=== PATIENT | female | born 1955 ===

== ENCOUNTER 2021-08-05 15:09 | Inpatient (IN) ==
[2021-08-05] MEDS ORDERED: 0.9 % SODIUM CHLORIDE 1,000 ML IV SCH (15:15)
[2021-08-05] MEDS ORDERED: 0.9 % SODIUM CHLORIDE 1,000 ML IV ONE (15:40)
--- NOTE | 2021-08-05 16:01 | Emergency Department Note ---
Altered Mental Status HPI General Chief Complaint: Altered Mental Status Stated Complaint: acute delerium, confusion Time Seen by Provider: 08/05/21 15:14 Source: patient and EMS Mode of arrival: EMS Limitations: altered mental status and physical limitation History of Present Illness HPI Narrative: Narrative: Patient presented to the emergency department via EMS for altered mental status. I actually saw her about 3 hours ago after a fall she had never been to this facility side is unsure what her baseline was she was little confused but because she was in the intermediate I figured that was baseline. She ended up being diagnosed with a bimalleolar fracture of the right ankle as well as pneumonia was given azithromycin here and then discharged back to the facility. Upon going back to the facility nursing staff was very concerned as they said that this is not the patient's baseline she is much more altered and want us to do a further work-up at this time. Patient does know her name where she is but is saying some very abnormal things and seems to be confused. They said that she kept on grabbing at her splint of the right lower extremity and wanted to take it off which is abnormal for her. Denying any other symptoms otherwise. Related Data Home Medications Medication Instructions Recorded Confirmed cetirizine 10 mg capsule (All Day 10 mg PO QHS 08/05/21 08/05/21 Allergy (cetirizine)) fluticasone propionate 100 1 inh INHALATION BID 08/05/21 08/05/21 mcg/actuation blister powder for inhalation (Flovent Diskus) fluticasone propionate 50 1 spray INTRANASAL BID 08/05/21 08/05/21 mcg/actuation nasal spray,suspension (Allergy Relief (fluticasone)) ipratropium bromide 17 2 puff INHALATION QID 08/05/21 08/05/21 mcg/actuation HFA aerosol inhaler (Atrovent HFA) simethicone 125 mg capsule (Gas-X 125 mg PO Q6H PRN 08/05/21 08/05/21 Extra Strength) Previous Rx's Medication Instructions Recorded azithromycin 250 mg tablet See Rx Instructions .ROUTE 08/05/21 .COMPLEX #6 tab Allergies Allergy/AdvReac Type Severity Reaction Status Date / Time morphine Allergy Verified 08/05/21 15:13 nalbuphine Allergy Verified 08/05/21 15:13 Review of Systems ROS ROS Narrative: Narrative: All systems ED: reviewed and negative except as stated. PFSH Narrative Patient History Narrative: Narrative: Medical/Surgical/Family History All Active Problems (Updated 08/05/21 @ 16:54 by Nile Aviles DO) Bimalleolar ankle fracture (Acute) Community acquired pneumonia (Acute) Altered mental status (Acute) Acute hyponatremia (Acute) Social History Smoking Status: Former smoker Exam Narrative Narrative: Narrative: Vital signs noted General: Awake. Alert. No distress. Skin: Warm. Dry. No rash. HEENT: NCAT. PERRL. EOMI. No conjunctivitis. No nystagmus. No pharyngitis. Membranes moist. Neck: No PTP. Good ROM. No meningeal signs. No stridor. No thyromegaly. No JVD. Cardiovascular: RRR. No murmur. No rubs. No gallops. Respiratory: No respiratory distress. Breath sounds equal. Lungs clear. Gastrointestinal: Abdomen soft. No tenderness. No distention. Normal bowel sounds. No palpable organomegaly or masses. Back: No deformity. No CVAT. Musculoskeletal: No tenderness. No swelling. No erythema. No edema. Good peripheral pulses x 4. Splint on the right lower extremity. Seems to be in good placement. Lymphatic: No palpable adenopathy. Neurological: No focal neurological deficits observed. . General Limitations: altered mental status and physical limitation Course Vital Signs Vital signs: Vital Signs Temperature 97.7 F 08/05/21 15:10 Pulse Rate 85 08/05/21 15:10 Respiratory Rate 20 08/05/21 15:10 Blood Pressure 131/113 08/05/21 15:10 Pulse Oximetry (%) 86 L 08/05/21 15:10 Temperature 97.7 F 08/05/21 15:10 Pulse Rate 85 08/05/21 16:48 Respiratory Rate 14 08/05/21 16:48 Blood Pressure 108/88 08/05/21 16:48 Pulse Oximetry (%) 83 L 08/05/21 16:48 [facility] Narrative Medical decision making narrative: Narrative: Patient does seem to have some altered mental status. At first I did not have a repeat previous labs on the patient but we finally were able to get them. It looks like patient does have worsening kidney function where previously her creatinine was 1.2 and now it is 1.9 so it has definitely gone up and this was from approximately 3 weeks ago. All the rest of her electrolytes are fairly normal just mild hyponatremia at 130 which could be also be the source of patient's confusion. I will go ahead and get a CT of the brain to rule out any other acute findings. We will also get repeat labs. VBG was done as well as a lactate which had no acute findings no signs of hypercapnia causing patient's symptoms. I did not repeat an EKG because her EKG earlier was normal. She is currently getting treated for pneumonia I went ahead and gave her azithromycin orally. We will also get blood cultures to be sure there is no other acute findings. Patient will need to be admitted now for altered mental status that does seem to be new. I did speak with Dr. Mascorro he said he will see the patient in the hospital for consultation but said at this time there is no emergent surgical needs at this time he is recommended a splint which is a posterior stirrup which we have placed. Labs came back showing actually lowering white blood cell count from previously. I still think she needs to continue on antibiotics. Labs show a hyponatremia otherwise normal electrolytes. Lactate was negative. No urinalysis at this ti me. CT of the brain was done and read by radiology as normal with no acute findings. Patient will be admitted to the hospitalist service for altered mental status, [facility] pneumonia and bimalleolar ankle fracture Lab Data Result diagrams: 08/05/21 15:30 08/05/21 15:30 Labs: Lab Results 08/05/21 08/05/21 08/05/21 Range/Units 15:30 15:30 15:30 WBC 13.6 H (4.5-11.0) K/mcL RBC 3.71 (3.59-5.38) M/mcL Hgb 10.2 L (11.2-15.7) g/dL Hct 32.8 L (34.1-44.9) % MCV 88.4 (80.0-100.0) fL MCH 27.5 (26.0-34.0) pg MCHC 31.1 (31.0-36.0) g/dL RDW 16.2 H (11.5-14.5) % Plt Count 379 (140-440) K/mcL MPV 10.4 (7.4-10.4) fL Neut % (Auto) 80.3 H (38.0-78.0) % Lymph % (Auto) 10.3 L (15.5-49.0) % Gem % (Auto) 8.3 (1.0-12.0) % Eos % (Auto) 0.8 (0.0-7.0) % Baso % (Auto) 0.3 (0.0-2.0) % Lymph # (Auto) 1.39 L (1.50-4.80) K/mcL Gem # (Auto) 1.13 H (0.10-0.90) K/mcL Eos # (Auto) 0.11 (0.00-0.70) K/mcL Baso # (Auto) 0.04 (0.00-0.30) K/mcL Absolute Neutrophils 10.88 H (1.80-8.00) K/mcL POC VBG pH (7.32-7.42) POC VBG pCO2 at Temp (41-51) POC VBG pO2 (25-40) POC VBG HCO3 (24-28) POC VBG Total CO2 (25-29) POC Venous O2 Sat (40-70) POC VBG Base Excess (-2-2) VBG Lactic Acid 0.8 (0.5-2.0) mmol/L Sodium 127 L (133-145) mmol/L Potassium 5.1 (3.3-5.1) mmol/L Chloride 90 L (96-108) mmol/L Carbon Dioxide 25 (22-30) mmol/L Anion Gap 12.0 (8.0-16.0) BUN 61 H (8-23) mg/dL Creatinine 2.1 H (0.6-1.1) mg/dL GFR Calculation 24 Glucose 125 H (70-105) mg/dL POC Venous Lactate (0.5-2) Calcium 9.0 (8.6-10.4) mg/dL Total Bilirubin 0.4 (0.1-1.0) mg/dL AST 17 (<32) U/L ALT 15 (<40) U/L Alkaline Phosphatase 91 (39-117) U/L Ammonia 25 (11-51) umol/L Total Creatine Kinase 68 (24-170) U/L Troponin T (<0.03) ng/mL Total Protein 6.6 (5.9-8.4) gm/dL Albumin 3.6 (3.2-5.2) gm/dL Globulin 3.0 (2.2-3.7) gm/dL Albumin/Globulin Ratio 1.2 (1.0-2.3) Urine Color Urine Appearance (Clear) Urine pH (5.0-9.0) Ur Specific [place] (1.000-1.035) Urine Protein (Negative) mg/dL Urine Glucose (UA) (Negative) mg/dL Urine Ketones (Negative) mg/dL Urine Occult Blood (Negative) mg/dL Urine Nitrate (Negative) Urine Bilirubin (Negative) mg/dL Urine Urobilinogen mg/dL Ur Leukocyte Esterase (Negative) /uL Ur Culture Indicated? 08/05/21 08/05/21 08/05/21 Range/Units 15:30 15:30 15:40 WBC (4.5-11.0) K/mcL RBC (3.59-5.38) M/mcL Hgb (11.2-15.7) g/dL Hct (34.1-44.9) % MCV (80.0-100.0) fL MCH (26.0-34.0) pg MCHC (31.0-36.0) g/dL RDW (11.5-14.5) % Plt Count (140-440) K/mcL MPV (7.4-10.4) fL Neut % (Auto) (38.0-78.0) % Lymph % (Auto) (15.5-49.0) % Gem % (Auto) (1.0-12.0) % Eos % (Auto) (0.0-7.0) % Baso % (Auto) (0.0-2.0) % Lymph # (Auto) (1.50-4.80) K/mcL Gem # (Auto) (0.10-0.90) K/mcL Eos # (Auto) (0.00-0.70) K/mcL Baso # (Auto) (0.00-0.30) K/mcL Absolute Neutrophils (1.80-8.00) K/mcL POC VBG pH 7.43 H (7.32-7.42) POC VBG pCO2 at Temp 41.5 (41-51) POC VBG pO2 40 (25-40) POC VBG HCO3 27.5 (24-28) POC VBG Total CO2 29.0 (25-29) POC Venous O2 Sat 76.0 H (40-70) POC VBG Base Excess 3.0 H (-2-2) VBG Lactic Acid (0.5-2.0) mmol/L Sodium (133-145) mmol/L Potassium (3.3-5.1) mmol/L Chloride (96-108) mmol/L Carbon Dioxide (22-30) mmol/L Anion Gap (8.0-16.0) BUN (8-23) mg/dL Creatinine (0.6-1.1) mg/dL GFR Calculation Glucose (70-105) mg/dL POC Venous Lactate 0.8 (0.5-2) Calcium (8.6-10.4) mg/dL Total Bilirubin (0.1-1.0) mg/dL AST (<32) U/L ALT (<40) U/L Alkaline Phosphatase (39-117) U/L Ammonia (11-51) umol/L Total Creatine Kinase (24-170) U/L Troponin T 0.01 (<0.03) ng/mL Total Protein (5.9-8.4) gm/dL Albumin (3.2-5.2) gm/dL Globulin (2.2-3.7) gm/dL Albumin/Globulin Ratio (1.0-2.3) Urine Color Yellow Urine Appearance Clear (Clear) Urine pH 5.0 (5.0-9.0) Ur Specific [place] 1.010 (1.000-1.035) Urine Protein Negative (Negative) mg/dL Urine Glucose (UA) Negative (Negative) mg/dL Urine Ketones Negative (Negative) mg/dL Urine Occult Blood Negative (Negative) mg/dL Urine Nitrate Negative (Negative) Urine Bilirubin Negative (Negative) mg/dL Urine Urobilinogen Negative mg/dL Ur Leukocyte Esterase Negative (Negative) /uL Ur Culture Indicated? No Discharge Plan Patient/Caregiver Discharge Instructions Pt seen by CORPORATE TRAVEL AGENT/PA only: No Clinical Impression: Altered mental status, Bimalleolar ankle fracture, Community acquired pneumonia, Acute hyponatremia Patient Disposition: Xfer As Outpt/Obs ([facility]) Condition: Fair Follow up with: Issac Caballero DO [Primary Care Provider] - Prescriptions: No Action azithromycin 250 mg tablet See Rx Instructions .ROUTE .COMPLEX Qty: 6 0RF Rx Instructions: For 250 mg dose pack: take 500 mg today (day 1), then 250 mg for 4 days (days 2-5) simethicone [Gas-X Extra Strength] 125 mg Capsule 125 mg PO Q6H PRN (Reason: Abdominal Discomfort) 0RF Flovent Diskus 100 mcg/actuation Blister With Device 1 inh INHALATION BID 0RF fluticasone propionate [Allergy Relief (fluticasone)] 50 mcg/actuation [place],Suspension 1 spray INTRANASAL BID 0RF Atrovent HFA 17 mcg/actuation Hfa Aerosol Inhaler 2 puff INHALATION QID 0RF All Day Allergy (cetirizine) 10 mg Capsule 10 mg PO QHS 0RF
[2021-08-05 16:20] LABS: Basophils # (Auto) 0.04 K/mcL (0.00-0.30); Basophils % (Auto) 0.3 % (0.0-2.0); Eosinophils # (Auto) 0.11 K/mcL (0.00-0.70); Eosinophils % (Auto) 0.8 % (0.0-7.0); Hematocrit 32.8 % (34.1-44.9); Hemoglobin 10.2 g/dL (11.2-15.7); Lymphocytes # (Auto) 1.39 K/mcL (1.50-4.80); Lymphocytes % (Auto) 10.3 % (15.5-49.0); Mean Cell Volume 88.4 fL (80.0-100.0); Mean Corpuscular HGB Conc 31.1 g/dL (31.0-36.0); Mean Platelet Volume 10.4 fL (7.4-10.4); Monocytes # (Auto) 1.13 K/mcL (0.10-0.90); Monocytes % (Auto) 8.3 % (1.0-12.0); Neutrophils % (Auto) 80.3 % (38.0-78.0); Platelet Count 379 K/mcL (140-440); RBC 3.71 M/mcL (3.59-5.38); Red Cell Distribution Width 16.2 % (11.5-14.5); WBC 13.6 K/mcL (4.5-11.0)
[2021-08-05 16:29] LABS: Appearance,Urine CLEAR (Clear); Bilirubin,Urine Negative (Negative); Color,Urine YELLOW; Culture Indicated,Urine No; Glucose,Urine (UA) Negative (Negative); Ketones,Urine Negative (Negative); Leukocyte Esterase,Urine Negative /uL (Negative); Nitrate,Urine Negative (Negative); Protein,Urine Negative (Negative); Urine Blood Negative (Negative); Urobilinogen,Urine Negative
[2021-08-05 16:44] LABS: ALT/SGPT 15 U/L (<40); AST/SGOT 17 U/L (<32); Albumin 3.6 gm/dL (3.2-5.2); Albumin/Globulin Ratio 1.2 (1.0-2.3); Alkaline Phosphatase 91 U/L (39-117); Bilirubin,Total 0.4 mg/dL (0.1-1.0); Blood Urea Nitrogen 61 mg/dL (8-23); Carbon Dioxide 25 mmol/L (22-30); Chloride 90 mmol/L (96-108); Creatine Kinase 68 U/L (24-170); Glomerular Filtration Rate 24; Glucose 125 mg/dL (70-105)
--- NOTE | 2021-08-05 16:45 | Cat Scan Report ---
History: Acute delirium TECHNIQUE: The brain was imaged without contrast in axial plane at 2.5 mm intervals. Sagittal and coronal reformats were created. The radiation exposure was limited using dose reduction technology. FINDINGS: There is a relatively large CSF filled pituitary sella. The pituitary is atrophic and flattened along the floor the sella. There is no inferior displacement of the optic chiasm. This would not explain the patient's symptoms. The remainder of the brain is normally developed. There is no significant atrophy. No hemorrhage, infarct, edema or mass effect are present. The ventricles and cisterns are normal. No abnormal extra-axial fluid collection is present. The face and calvarium asymmetrically developed. The face is oriented towards the right, relative to the calvarium. There is opacification of a couple ethmoid air cells. No abnormality is seen within the orbits. IMPRESSION: "Empty pituitary sella". Normal brain Low-level ethmoid sinusitis Dr. Aviles was called with the report Interpreted and Authenticated by: Scottie Borrero 08/05/21
[2021-08-05] MEDS ORDERED: LORazepam 2 MG/ML VIAL IV ONE (17:10)
--- NOTE | 2021-08-05 17:11 | Internal Med History&Physical ---
HPI History of Present Illness Patient information: Note initiated : 08/05/21 at 5:04 pm Service Date, if different from initiated Date: [as above] Patient: Sofía Hannah a 66 y/o F admitted on for acute delerium, confusion. Chief Complaint: [ALOC] Chief complaint: Bounce back History of present illness: Ms. Hannah is a 66 year old F with a past medical history significant for COPD and prior episode of hyponatremia recently admitted to [facility] was in the ER this morning after a fall resulting in a right bimalleolar fracture which was deemed nonoperative. The patient had a ground-level fall and injured her ankle. Per EMS, when she fell, she was off of her oxygen and was noted to be hypoxemic. Chest x-ray was concerning for mild atelectasis or inflammation in the right lower lobe with associated elevated diaphragm. She was started on Zithromax and discharged back to detention facility. She was noted to be quite encephalopathic per facility staff and was brought back to the ER the same day this afternoon. Upon arrival, per my discussion with the ER physician, the patient was more altered. She was hemodynamically stable and afebrile. The hospitalist service was asked admit the patient for further management and evaluation of her multiple electrolyte derangements, MARLYN, and acute encephalopathy. Review of Systems ROS unobtainable: due to mental status PFSH PFSH All Active Problems (Updated 08/05/21 @ 17:09 by Oanh Caputo MD) COPD (chronic obstructive pulmonary disease) (Acute) Morbid obesity (Acute) Acute hypoxemic respiratory failure (Acute) MARLYN (acute kidney injury) (Acute) Bimalleolar ankle fracture (Acute) Community acquired pneumonia (Acute) Altered mental status (Acute) Acute hyponatremia (Acute) MEDS/ALLERGIES Home Medications and Allergies Home Medications Medication Instructions Recorded Confirmed Type azithromycin 250 mg tablet See Rx Instructions .ROUTE 08/05/21 Rx .COMPLEX #6 tab cetirizine 10 mg capsule (All Day 10 mg PO QHS 08/05/21 08/05/21 History Allergy (cetirizine)) fluticasone propionate 100 1 inh INHALATION BID 08/05/21 08/05/21 History mcg/actuation blister powder for inhalation (Flovent Diskus) fluticasone propionate 50 1 spray INTRANASAL BID 08/05/21 08/05/21 History mcg/actuation nasal spray,suspension (Allergy Relief (fluticasone)) ipratropium bromide 17 2 puff INHALATION QID 08/05/21 08/05/21 History mcg/actuation HFA aerosol inhaler (Atrovent HFA) simethicone 125 mg capsule (Gas-X 125 mg PO Q6H PRN 08/05/21 08/05/21 History Extra Strength) Allergies Allergy/AdvReac Type Severity Reaction Status Date / Time morphine Allergy Verified 08/05/21 15:13 nalbuphine Allergy Verified 08/05/21 15:13 EXAM Constitutional Vitals: Temp Pulse Resp BP Pulse Ox 97.7 F 85 14 108/88 83 L 08/05/21 15:10 08/05/21 16:48 08/05/21 16:48 08/05/21 16:48 08/05/21 16:48 General appearance: mild distress and morbidly obese Head Head exam: Present atraumatic and normal inspection Eye Eye exam: Present EOMI ENT ENT exam: Present mucous membranes dry Expanded ENT Exam Throat exam: Present normal inspection Respiratory Respiratory exam: Present decreased breath sounds Cardiovascular Cardiovascular exam: Present normal rate and rhythm and RRR GI/Abdominal GI/Abdominal exam: Present normal bowel sounds, soft and diminished bowel sounds; Absent distended or guarding Neurological Exam Neurological exam: Present altered; Absent oriented X3 Expanded Psychiatric Exam Focused psych exam: Present delusional Skin Skin exam: Present dry; Absent diaphoretic, mottled or petechiae DATA Data Completed and Pending Labs: Labs from last 24 hours 08/05/21 08/05/21 08/05/21 15:40 15:30 15:30 WBC RBC Hgb Hct MCV MCH MCHC RDW Plt Count MPV Neut % (Auto) Lymph % (Auto) [place] % (Auto) Eos % (Auto) Baso % (Auto) Lymph # (Auto) [place] # (Auto) Eos # (Auto) Baso # (Auto) Absolute Neutrophils POC VBG pH 7.43 H POC VBG pCO2 at Temp 41.5 POC VBG pO2 40 POC VBG HCO3 27.5 POC VBG Total CO2 29.0 POC Venous O2 Sat 76.0 H POC VBG Base Excess 3.0 H VBG Lactic Acid Sodium Potassium Chloride Carbon Dioxide Anion Gap BUN Creatinine GFR Calculation Glucose POC Venous Lactate 0.8 Calcium Total Bilirubin AST ALT Alkaline Phosphatase Ammonia Total Creatine Kinase Troponin T 0.01 Total Protein Albumin Globulin Albumin/Globulin Ratio Urine Color Yellow Urine Appearance Clear Urine pH 5.0 Ur Specific [place] 1.010 Urine Protein Negative Urine Glucose (UA) Negative Urine Ketones Negative Urine Occult Blood Negative Urine Nitrate Negative Urine Bilirubin Negative Urine Urobilinogen Negative Ur Leukocyte Esterase Negative Ur Culture Indicated? No 08/05/21 08/05/21 08/05/21 15:30 15:30 15:30 WBC 13.6 H RBC 3.71 Hgb 10.2 L Hct 32.8 L MCV 88.4 MCH 27.5 MCHC 31.1 RDW 16.2 H Plt Count 379 MPV 10.4 Neut % (Auto) 80.3 H Lymph % (Auto) 10.3 L [place] % (Auto) 8.3 Eos % (Auto) 0.8 Baso % (Auto) 0.3 Lymph # (Auto) 1.39 L [place] # (Auto) 1.13 H Eos # (Auto) 0.11 Baso # (Auto) 0.04 Absolute Neutrophils 10.88 H POC VBG pH POC VBG pCO2 at Temp POC VBG pO2 POC VBG HCO3 POC VBG Total CO2 POC Venous O2 Sat POC VBG Base Excess VBG Lactic Acid 0.8 Sodium 127 L Potassium 5.1 Chloride 90 L Carbon Dioxide 25 Anion Gap 12.0 BUN 61 H Creatinine 2.1 H GFR Calculation 24 Glucose 125 H POC Venous Lactate Calcium 9.0 Total Bilirubin 0.4 AST 17 ALT 15 Alkaline Phosphatase 91 Ammonia 25 Total Creatine Kinase 68 Troponin T Total Protein 6.6 Albumin 3.6 Globulin 3.0 Albumin/Globulin Ratio 1.2 Urine Color Urine Appearance Urine pH Ur Specific [place] Urine Protein Urine Glucose (UA) Urine Ketones Urine Occult Blood Urine Nitrate Urine Bilirubin Urine Urobilinogen Ur Leukocyte Esterase Ur Culture Indicated? A/P Assessment and plan (1) Bimalleolar ankle fracture: Status: Acute Qualifiers: Encounter type: initial encounter Fracture type: closed Laterality: right Qualified Code(s): S82.841A - Displaced bimalleolar fracture of right lower leg, initial encounter for closed fracture (2) Community acquired pneumonia: Status: Acute Qualifiers: Laterality: unspecified laterality Qualified Code(s): J18.9 - Pneumonia, unspecified organism (3) Altered mental status: Status: Acute Qualifiers: Altered mental status type: unspecified Qualified Code(s): R41.82 - Altered mental status, unspecified (4) Acute hyponatremia: Status: Acute (5) MARLYN (acute kidney injury): Status: Acute (6) Acute hypoxemic respiratory failure: Status: Acute (7) Morbid obesity: Status: Acute (8) COPD (chronic obstructive pulmonary disease): Status: Acute Narrative A/P Narrative: The patient was diagnosed with a bimalleolar fracture and was briefly at her facility when she was brought right back for altered mental status. Differential diagnosis for her encephalopathy includes infectious, drug-induced from narcotic analgesics, versus hypoxemic encephalopathy. We will avoid any sedatives. Treat her underlying right lobar pneumonia with ceftriaxone and Zithromax, and resuscitated with IV fluids. We will monitor serial BMP, renally dose medications and hold nephrotoxic agents. We will keep her on pulse ox and monitor her O2 sat closely. She does have underlying COPD and will be maintained on duo nebs and prednisone. Time Spent With Patient Time: Total time spent is greater than 50% in coordination of care (as documented) at patient's floor/unit and/or counseling patient: Total time spent with greater than 50% in coordination of care (as documented) at patient's floor/unit and/or counseling patient:: Greater than 70 minutes
[2021-08-05] MEDS ORDERED: ALBUTEROL SULFATE 2.5 MG/3 ML NEBULIZER NEB PRN (18:17)
[2021-08-05] MEDS ORDERED: ONDANSETRON 4 MG/2 ML VIAL IV PRN (18:17)
[2021-08-05] MEDS ORDERED: cefTRIAXone 1 GM in DEXTROSE 5% IN WATER 50 ML IV SCH (18:17)
[2021-08-05] MEDS: 0.9 % SODIUM CHLORIDE 1,000 ML IV SCH (18:30)
[2021-08-05] MEDS ORDERED: LACTATED RINGERS 1,000 ML IV ONE (18:31)
[2021-08-05] MEDS ORDERED: IOPAMIDOL 100 ML BOTTLE IV ONE (20:44)
[2021-08-05] MEDS ORDERED: SENNOSIDES 1 TABLET PO SCH (21:00)
[2021-08-05] MEDS: DOCUSATE SODIUM 100 MG CAPSULE PO SCH (21:43)
[2021-08-05] MEDS: cefTRIAXone 1 GM VIAL IV SCH (21:44)
[2021-08-05] MEDS: 0.9 % SODIUM CHLORIDE 10 ML SYRINGE IV SCH (21:45)
[2021-08-06] MEDS: ACETAMINOPHEN 325 MG TABLET PO PRN ×2 (00:02→09:23)
[2021-08-06] MEDS ORDERED: SILVER SULFADIAZINE CREAM.TOP 25GM TOPICAL ONE (03:16)
[2021-08-06] MEDS: 0.9 % SODIUM CHLORIDE 1,000 ML IV SCH (05:32)
[2021-08-06] MEDS: 0.9 % SODIUM CHLORIDE 10 ML SYRINGE IV SCH (05:32)
[2021-08-06 06:28] LABS: Basophils # (Auto) 0.02 K/mcL (0.00-0.30); Basophils % (Auto) 0.3 % (0.0-2.0); Eosinophils # (Auto) 0.11 K/mcL (0.00-0.70); Eosinophils % (Auto) 1.4 % (0.0-7.0); Hemoglobin 9.8 g/dL (11.2-15.7); Lymphocytes # (Auto) 1.05 K/mcL (1.50-4.80); Lymphocytes % (Auto) 13.5 % (15.5-49.0); Mean Cell Volume 90.9 fL (80.0-100.0); Mean Corpuscular HGB Conc 29.7 g/dL (31.0-36.0); Mean Platelet Volume 10.6 fL (7.4-10.4); Monocytes # (Auto) 1.01 K/mcL (0.10-0.90); Neutrophils % (Auto) 71.8 % (38.0-78.0); Platelet Count 307 K/mcL (140-440); RBC 3.63 M/mcL (3.59-5.38); Red Cell Distribution Width 16.5 % (11.5-14.5); WBC 7.8 K/mcL (4.5-11.0)
[2021-08-06 06:50] LABS: Blood Urea Nitrogen 43 mg/dL (8-23); Calcium 8.9 mg/dL (8.6-10.4); Carbon Dioxide 29 mmol/L (22-30); Chloride 101 mmol/L (96-108); Glomerular Filtration Rate 39; Glucose 96 mg/dL (70-105)
--- NOTE | 2021-08-06 08:51 | Cat Scan Report ---
History: Sepsis, decreased level of consciousness TECHNIQUE: Following injection of 60 cc of Isovue-370 contrast, the patient was imaged during the portal venous phase from the thoracic inlet through the symphysis pubis. Sagittal and coronal reformats were created along with axial MIPS images of the chest. The radiation exposure was limited using dose reduction technology. FINDINGS: The lung volumes are small due to poor inspiration. There are multiple thick bands of atelectasis in both lungs. There could be superimposed pneumonia. There is no lung abscess or pleural effusion. The heart is normal in size and contour. There is relatively little atherosclerotic disease. Abdomen and pelvis: The liver and spleen are normal in size and homogeneous. The gallbladder is relatively distended and measures 4.8 x 13.8 cm. The wall is thin and there is no surrounding inflammation. There are no stones within the lumen. The bile ducts are nondilated. Pancreas is normal in size and homogeneous without evidence of a mass or inflammation. The adrenals and kidneys are normal. There is no kidney stone, hydronephrosis or radiographic evidence of pyelonephritis. The abdominal aorta and inferior vena cava are normal. No enlarged lymph nodes are present. There is fecal impaction from the cecum to the splenic flexure. There is gradual transition to decompressed descending colon and sigmoid. There is no evidence of colitis or diverticulitis. The appendix is normal. The urinary bladder is moderately distended. The wall is smooth and there are no intraluminal filling defects. The uterus and ovaries have been removed. Bone windows reveal degenerative disc disease and arthritis at multiple levels. There is no fracture and no radiographic evidence of neoplasm or osteomyelitis IMPRESSION: Small lung volumes with moderate atelectasis in both lungs. Superimposed pneumonia may also be present. No evidence of abscess in the chest abdomen or pelvis Mildly distended gallbladder and urinary bladder Fecal impaction in the right side of the colon Dr. Caputo was called with the report Interpreted and Authenticated by: Scottie Borrero 08/06/21
[2021-08-06] MEDS ORDERED: AZITHROMYCIN 250 MG in DEXTROSE 5% IN WATER 250 ML IV SCH (09:00)
[2021-08-06] MEDS ORDERED: ENOXAPARIN 40 MG/0.4 ML SYRINGE SQ SCH (09:00)
[2021-08-06] MEDS: DOCUSATE SODIUM 100 MG CAPSULE PO SCH (09:25)
[2021-08-06] MEDS ORDERED: oxyCODONE HCL 5 MG TABLET PO PRN (10:40)
[2021-08-06] MEDS: cefTRIAXone 1 GM VIAL IV SCH (13:41)
[2021-08-06] MEDS ORDERED: OLANZapine 5 MG TABLET PO SCH (15:00)
--- NOTE | 2021-08-06 15:24 | Discharge Summary ---
Discharge Provider Provider Patient information: Note initiated : 08/06/21 at 3:17 pm Service Date, if different from initiated Date: [as above] Patient: Sofía Hannah 66 y/o F admitted on 08/05/21 for acute delerium, confusion. Chief Complaint: [ALOC] Date of admission: 08/05/21 17:57 Discharge date: 08/06/21 Primary care physician: Issac Caballero DO Admitting clinician: Oanh Caputo Consults: 08/05/21 Consult to Physician [CONS] Stat Comment: Consulting Provider: Oanh Caputo Reason For Exam: Physician to Consult Discharging clinician: Oanh Caputo Discharge Meds Discharge Medications Home Medications albuterol sulfate 90 mcg/actuation aerosol inhaler (ProAir HFA) 108 mcg INHALATION Q4H PRN 08/05/21 [History Confirmed 08/06/21 Last Taken 08/05/21 07:58] cetirizine 10 mg capsule (All Day Allergy (cetirizine)) 10 mg PO QHS 08/05/21 [History Confirmed 08/06/21 Last Taken 08/04/21 19:00] fluticasone propionate 100 mcg/actuation blister powder for inhalation (Flovent Diskus) 1 inh INHALATION 0800,1700 08/05/21 [History Confirmed 08/06/21 Last Taken 08/05/21 08:00] fluticasone propionate 50 mcg/actuation nasal spray,suspension (Allergy Relief (fluticasone)) 1 spray INTRANASAL BID 08/05/21 [History Confirmed 08/06/21 Last Taken 08/04/21 21:00] guaifenesin 600 mg tablet,extended release 600 mg PO BID 08/05/21 [History Confirmed 08/06/21 Last Taken 08/05/21 06:00] ipratropium bromide 17 mcg/actuation HFA aerosol inhaler (Atrovent HFA) 2 puff INHALATION QID 08/05/21 [History Confirmed 08/06/21 Last Taken 08/04/21 19:00] levothyroxine 100 mcg capsule 100 mcg PO QDAY 08/05/21 [History Confirmed 08/06/21 Last Taken 08/04/21 21:00] loperamide 2 mg tablet 2 mg PO Q6H PRN 08/05/21 [History Confirmed 08/06/21 Last Taken Unknown] methocarbamol 750 mg tablet 750 mg PO TID 08/05/21 [History Confirmed 08/06/21 Last Taken 08/04/21 21:00] metoprolol tartrate 25 mg tablet 25 mg PO QDAY 08/05/21 [History Confirmed 08/06/21 Last Taken 08/04/21 04:00] naproxen sodium 220 mg capsule 440 mg PO 0000,1200 08/05/21 [History Confirmed 08/06/21 Last Taken 08/05/21 00:00] nicotine 7 mg/24 hr daily transdermal patch 1 patch TRANSDERMAL QDAY 08/05/21 [History Confirmed 08/06/21 Last Taken 08/04/21 09:00] olanzapine 5 mg tablet (Zyprexa) 5 mg PO TID 08/05/21 [History Confirmed 08/06/21 Last Taken 08/04/21 21:00] ondansetron 4 mg disintegrating tablet 4 mg PO Q4H PRN 08/05/21 [History Confirmed 08/06/21 Last Taken Unknown] pantoprazole 40 mg tablet,delayed release 40 mg PO QAM 08/05/21 [History Confirmed 08/06/21 Last Taken 08/05/21 06:00] pregabalin 300 mg capsule 300 mg PO BID 08/05/21 [History Confirmed 08/06/21 Last Taken 08/05/21 09:00] sennosides 8.6 mg capsule 8.6 mg PO BID 08/05/21 [History Confirmed 08/06/21 Last Taken 08/05/21 06:00] simethicone 125 mg capsule (Gas-X Extra Strength) 125 mg PO Q6H PRN 08/05/21 [History Confirmed 08/06/21 Last Taken Unknown] zolpidem 5 mg tablet 5 mg PO QHS 08/05/21 [History Confirmed 08/06/21 Last Taken 08/04/21 21:00] Lidocaine Gel 2% See Rx Instructions .ROUTE .COMPLEX 08/06/21 [History Confirmed 08/06/21 Last Taken 08/04/21 21:00] acetaminophen 500 mg tablet 1,000 mg PO BID 08/06/21 [History Confirmed 08/06/21 Last Taken 08/04/21 18:00] amlodipine 5 mg tablet 5 mg PO QDAY 08/06/21 [History Confirmed 08/06/21 Last Taken 08/05/21 06:00] bisacodyl 10 mg rectal suppository (Dulcolax (bisacodyl)) 10 mg OK QDAY PRN 08/06/21 [History Confirmed 08/06/21 Last Taken Unknown] cholecalciferol (vitamin D3) 50 mcg (2,000 unit) tablet 50 mcg PO QDAY 08/06/21 [History Confirmed 08/06/21 Last Taken 08/04/21 09:00] duloxetine 60 mg capsule,delayed release sprinkle 60 mg PO QDAY 08/06/21 [History Confirmed 08/06/21 Last Taken 08/04/21 09:00] lidocaine 4 % topical patch 1 patch TOPICAL QDAY 08/06/21 [History Confirmed 08/06/21 Last Taken 08/05/21 06:00] oxycodone 10 mg tablet,extended release,12 hr 10 mg PO 0800,2000 08/06/21 [History Confirmed 08/06/21 Last Taken 08/05/21 08:00] polyethylene glycol 3350 17 gram oral powder packet 17 g PO BID 08/06/21 [History Confirmed 08/06/21 Last Taken 08/04/21 21:00] sodium phosphates 19 gram-7 gram/118 mL enema (Fleet Enema) 118 ml OK PRN PRN 08/06/21 [History Confirmed 08/06/21 Last Taken Unknown] valsartan 320 mg-hydrochlorothiazide 25 mg tablet 1 tab PO DAILY 08/06/21 [History Confirmed 08/06/21 Last Taken 08/04/21 09:00] COURSE Hospital Course Hospital course: Ms. Hannah is a 66 year old F with a past medical history significant for COPD and prior episode of hyponatremia recently admitted to [facility] was in the ER this morning after a fall resulting in a right bimalleolar fracture which was deemed nonoperative. The patient had a ground-level fall and injured her ankle. Per EMS, when she fell, she was off of her oxygen and was noted to be hypoxemic. Chest x-ray was concerning for mild atelectasis or inflammation in the right lower lobe with associated elevated diaphragm. She was started on Zithromax and discharged back to shelter facility. She was noted to be quite encephalopathic per facility staff and was brought back to the ER the same day this afternoon. Upon arrival, per my discussion with the ER physician, the patient was more altered. She was hemodynamically stable and afebrile. The hospitalist service was asked admit the patient for further management and evaluation of her multiple electrolyte derangements, MARLYN, and acute encephalopathy. The patient's encephalopathy was initially thought to be multifactorial in etiology. The differential included hypoxemia, polypharmacy, infectious, or metabolic. CT head was unrevealing. CT chest, abdomen pelvis did not reveal an obvious source of infection except for possible bibasilar atelectasis/pneumonia. She was covered with ceftriaxone and Zithromax. There was evidence of acute kidney injury and she was resuscitated aggressively with IV fluids. The patient is on numerous medications at home including methocarbamol, Zyprexa, pregabalin, duloxetine, oxycodone. All of these were held. On physical examination, there was concerns for fasciculations/jerking movements. In the setting of altered mental status, there was concerns for partial complex seizures. We do not have psychiatry or neurology available. We do not have EEG available. She was transferred to higher level of care for a complete neuropsych evaluation. It would be beneficial to assess her home medication list, have an EEG. Discharge diagnosis: Toxic metabolic encephalopathy, polypharmacy, CAP, ankle fracture Reason for admission: ALOC Time Spent with Patient Time attestation: Total time spent providing and/or coordinating discharge services: Time spent: Greater than 30 minutes EXAM Constitutional Vitals: Temp Pulse Resp BP Pulse Ox 99.4 F H 74 16 107/80 97 08/06/21 13:44 08/06/21 13:44 08/06/21 13:44 08/06/21 13:44 08/06/21 13:44 General appearance: morbidly obese Head Head exam: Present atraumatic and normal inspection Eye Eye exam: Absent scleral icterus ENT ENT exam: Present mucous membranes dry Cardiovascular Cardiovascular exam: Present normal rate and rhythm GI/Abdominal GI/Abdominal exam: Present normal bowel sounds and soft; Absent distended Neurological Exam Neurological exam: Absent CN II-XII intact or oriented X3 Expanded Neurological Exam Neurological exam: Present inattentive Speech: Present slurred Discharge Data Data Completed and Pending Labs on day of discharge: Labs from last 24 hours 08/06/21 08/06/2122 05:18 05:18 15:40 WBC 7.8 RBC 3.63 Hgb 9.8 L Hct 33.0 L MCV 90.9 MCH 27.0 MCHC 29.7 L RDW 16.5 H Plt Count 307 MPV 10.6 H Neut % (Auto) 71.8 Lymph % (Auto) 13.5 L Collin % (Auto) 13.0 H Eos % (Auto) 1.4 Baso % (Auto) 0.3 Lymph # (Auto) 1.05 L Collin # (Auto) 1.01 H Eos # (Auto) 0.11 Baso # (Auto) 0.02 Absolute Neutrophils 5.60 POC VBG pH 7.43 H POC VBG pCO2 at Temp 41.5 POC VBG pO2 40 POC VBG HCO3 27.5 POC VBG Total CO2 29.0 POC Venous O2 Sat 76.0 H POC VBG Base Excess 3.0 H VBG Lactic Acid Sodium 138 Potassium 5.2 H Chloride 101 Carbon Dioxide 29 Anion Gap 8.0 BUN 43 H Creatinine 1.4 H GFR Calculation 39 Glucose 96 POC Venous Lactate 0.8 Calcium 8.9 Total Bilirubin AST ALT Alkaline Phosphatase Ammonia Total Creatine Kinase Troponin T Total Protein Albumin Globulin Albumin/Globulin Ratio Urine Color Urine Appearance Urine pH Ur Specific Equality Urine Protein Urine Glucose (UA) Urine Ketones Urine Occult Blood Urine Nitrate Urine Bilirubin Urine Urobilinogen Ur Leukocyte Esterase Ur Culture Indicated? 08/05/21 08/05/21 08/05/21 15:30 15:30 15:30 WBC RBC Hgb Hct MCV MCH MCHC RDW Plt Count MPV Neut % (Auto) Lymph % (Auto) Collin % (Auto) Eos % (Auto) Baso % (Auto) Lymph # (Auto) Collin # (Auto) Eos # (Auto) Baso # (Auto) Absolute Neutrophils POC VBG pH POC VBG pCO2 at Temp POC VBG pO2 POC VBG HCO3 POC VBG Total CO2 POC Venous O2 Sat POC VBG Base Excess VBG Lactic Acid Sodium Potassium Chloride Carbon Dioxide Anion Gap BUN Creatinine GFR Calculation Glucose POC Venous Lactate Calcium Total Bilirubin AST ALT Alkaline Phosphatase Ammonia 25 Total Creatine Kinase Troponin T 0.01 Total Protein Albumin Globulin Albumin/Globulin Ratio Urine Color Yellow Urine Appearance Clear Urine pH 5.0 Ur Specific Equality 1.010 Urine Protein Negative Urine Glucose (UA) Negative Urine Ketones Negative Urine Occult Blood Negative Urine Nitrate Negative Urine Bilirubin Negative Urine Urobilinogen Negative Ur Leukocyte Esterase Negative Ur Culture Indicated? No 08/05/21 08/05/21 15:30 15:30 WBC 13.6 H RBC 3.71 Hgb 10.2 L Hct 32.8 L MCV 88.4 MCH 27.5 MCHC 31.1 RDW 16.2 H Plt Count 379 MPV 10.4 Neut % (Auto) 80.3 H Lymph % (Auto) 10.3 L Collin % (Auto) 8.3 Eos % (Auto) 0.8 Baso % (Auto) 0.3 Lymph # (Auto) 1.39 L Collin # (Auto) 1.13 H Eos # (Auto) 0.11 Baso # (Auto) 0.04 Absolute Neutrophils 10.88 H POC VBG pH POC VBG pCO2 at Temp POC VBG pO2 POC VBG HCO3 POC VBG Total CO2 POC Venous O2 Sat POC VBG Base Excess VBG Lactic Acid 0.8 Sodium 127 L Potassium 5.1 Chloride 90 L Carbon Dioxide 25 Anion Gap 12.0 BUN 61 H Creatinine 2.1 H GFR Calculation 24 Glucose 125 H POC Venous Lactate Calcium 9.0 Total Bilirubin 0.4 AST 17 ALT 15 Alkaline Phosphatase 91 Ammonia Total Creatine Kinase 68 Troponin T Total Protein 6.6 Albumin 3.6 Globulin 3.0 Albumin/Globulin Ratio 1.2 Urine Color Urine Appearance Urine pH Ur Specific Equality Urine Protein Urine Glucose (UA) Urine Ketones Urine Occult Blood Urine Nitrate Urine Bilirubin Urine Urobilinogen Ur Leukocyte Esterase Ur Culture Indicated? Discharge Plan Patient/Caregiver Discharge Instructions Prescriptions: No Action simethicone [Gas-X Extra Strength] 125 mg Capsule 125 mg PO Q6H PRN (Reason: Abdominal Discomfort) 0RF Flovent Diskus 100 mcg/actuation Blister With Device 1 inh INHALATION 0800,1700 0RF fluticasone propionate [Allergy Relief (fluticasone)] 50 mcg/actuation [place],Suspension 1 spray INTRANASAL BID 0RF Atrovent HFA 17 mcg/actuation Hfa Aerosol Inhaler 2 puff INHALATION QID 0RF All Day Allergy (cetirizine) 10 mg Capsule 10 mg PO QHS 0RF guaifenesin 600 mg Tablet Extended Release 600 mg PO BID 0RF loperamide 2 mg Tablet 2 mg PO Q6H PRN (Reason: Diarrhea) 0RF methocarbamol 750 mg Tablet 750 mg PO TID 0RF metoprolol tartrate 25 mg Tablet 25 mg PO QDAY 0RF Rx Instructions: Hold if SBP<110 or P<65 sennosides 8.6 mg Capsule 8.6 mg PO BID 0RF levothyroxine 100 mcg Capsule 100 mcg PO QDAY 0RF naproxen sodium 220 mg Capsule 440 mg PO 0000,1200 0RF olanzapine [Zyprexa] 5 mg Tablet 5 mg PO TID 0RF pantoprazole 40 mg Tablet,Delayed Release (Dr/Ec) 40 mg PO QAM 0RF zolpidem 5 mg Tablet 5 mg PO QHS 0RF albuterol sulfate [ProAir HFA] 90 mcg/actuation Hfa Aerosol Inhaler 108 mcg INHALATION Q4H PRN (Reason: Shortness Of Breath) 0RF ondansetron [Zofran ODT] 4 mg Tablet,Disintegrating 4 mg PO Q4H PRN (Reason: Nausea) 0RF nicotine [Nicoderm] 7 mg/24 hr Patch 24 Hour 1 patch transdermal QDAY 0RF Rx Instructions: smoking cessation for 2 weeks. Start date 08/03/21 07:00 till 08/17/21 pregabalin 300 mg Capsule 300 mg PO BID 0RF lidocaine 4 % Adhesive Patch,Medicated 1 patch TOPICAL QDAY 0RF polyethylene glycol 3350 17 gram Powder In Packet 17 g PO BID 0RF amlodipine 5 mg Tablet 5 mg PO QDAY 0RF acetaminophen 500 mg Tablet 1,000 mg PO BID 0RF valsartan-hydrochlorothiazide 320-25 mg Tablet 1 tab PO DAILY 0RF Rx Instructions: D/C date 08/04/21 13:00 duloxetine 60 mg Capsule, Delayed Rel Sprinkle 60 mg PO QDAY 0RF oxycodone 10 mg Tablet Extended Release 12 Hr 10 mg PO 0800,1999 0RF bisacodyl [Dulcolax (bisacodyl)] 10 mg Suppository 10 mg OK QDAY PRN (Reason: Constipation) 0RF Rx Instructions: for no BM on shift following Milk of Magnesia dose Fleet Enema 19-7 gram/118 mL Enema 118 ml OK PRN PRN (Reason: Constipation) 0RF Rx Instructions: for no BM on shift following Dulcolax suppository application Lidocaine Gel 2% gel See Rx Instructions .ROUTE .COMPLEX 0RF Rx Instructions: Apply to painful areas topically four times a day for chronic pain cholecalciferol (vitamin D3) 50 mcg (2,000 unit) Tablet 50 mcg PO QDAY 0RF Follow Up Plan Follow up with: Issac Caballero DO [Primary Care Provider] - [facility] Prognosis: Fair Rehab Potential: Serious I certify that the patient requires SNF services: No Overall status at discharge: patient is not back to baseline Discharge Orders: Discharge Order (Routine); Ordered 08/06/21 Ordered By: Oanh Caputo
[2021-08-07] MEDS ORDERED: LEVOTHYROXINE 100 MCG TABLET PO SCH (07:30)
[2021-08-07] MEDS ORDERED: NICOTINE 7 MG PATCH TOPICAL SCH (09:00)
== END 2021-08-06 13:13 | disposition short-term general hospital (02) | DRG 91 ==
LOC: ED 15:09 → ICU 17:57
PROVIDERS: ADMIT Student in an Organized Health Care Education/Training Program; ATTEND Student in an Organized Health Care Education/Training Program